=== PATIENT | female | born 1985 | race Caucasian/White ===

== ENCOUNTER 2017-07-14 17:14 | Emergency (ER) | payer OTHER ==
[2017-07-14 17:51] LABS: #Basophils 0.1 thou/uL (0.0-0.2); #Eosinphils 0.1 thou/uL (0.0-0.7); #Lymphocytes 2.6 thou/uL (1.20-3.40); #Monocytes 1.2 thou/uL (0.11-0.59); #Neutrophils 4.9 thou/uL (1.40-6.50); %Eosinophils 1.6 % (0.0-10.0); %Lymphocytes 29.1 % (21.0-51.0); %Monocytes 13.6 % (0.0-10.0); %Neutrophils 54.8 % (42.0-75.0); Hemoglobin 14.1 g/dL (12.0-16.0); Mean Corpuscular HGB CONC 34.2 g/dL (32.0-36.0); Mean Corpuscular Volume 90.6 fl (81.0-99.0); Mean Platelet Volume 8.6 fL (7.4-10.4); Platelet Count 191 thou/uL (130-400); RBC Distribution Width 10.7 % (11.5-14.5); Red Blood Cell (RBC) Count 4.56 mill/uL (4.20-5.40); White Blood Cell (WBC) Count 8.9 thou/uL (4.8-10.8)
[2017-07-14 18:08] LABS: Bilirubin Negative (Negative); Blood, Urine Trace (Negative); Clarity Clear (Clear); Glucose, Urine (Dipstick) Negative (Negative); Leukocyte Negative (Negative); Nitrite Negative (Negative); Protein, Urine (Dipstick) Negative (Neg-Trace); Urobilinogen 0.2 mg/dL (0.2-1.0); pH, Urine 6.5 (5.0-9.0)
[2017-07-14 18:11] LABS: RBC/HPF 0-3 HPF (0-3); Squamous Epithelial 0-3 HPF (0-3); WBC/HPF 0-3 HPF (0-3)
--- NOTE | 2017-07-14 20:31 | ULT ---
PELVIC ULTRASOUND 07/14/17 COMPARISON: None. HISTORY: Vaginal bleeding and pressure, history of prior ectopic and uterine fibroid disease. Quanti tative beta HCG of 1500. TECHNIQUE: Multiplanar qureshi scale sonographic imaging of the pelvis is obtained with endovaginal imaging. The ov dion are assessed with color flow and spectral analysis. FINDINGS: There is no intrauterine gestational sac seen. There is a hypoechoic 1.9 x 20 cm lesion within the mid portion of the uterus which suggests a uterin e fibroid. The patient does report a history of uterine fibroid disease. The left ovary measures 2.5 x 1.3 x 2.9 cm and the right ovary measures 4.6 x 2.5 x 3.6 cm. both ovar ies demonstrate normal blood flow. There is a nonspecific heterogeneous iso to hypoechoic structure/mass in the left adnexal region guerita cent to the left ovary measuring 1.5 x 1.1 cm. this is of uncertain significance. It does not demonst rate an internal pole. This could potentially represent an ectopic in the left adnexa l region. This could also represent an exophytic hypoechoic/isoechoic lesion emanating from the left ovary. There is a mild to moderate degree of free fluid seen in the pelvis. There is a cyst in the right ova ry measuring up to 3.6 cm. IMPRESSION: 1. No intrauterine gestational sac seen. 1.9 x 2.0 cm heterogeneously hypoechoic lesion in the m id portion of the uterus suggests a fibroid. 2. Nonspecific heterogeneous hypo/isoechoic lesion in the left adnexa as detailed above. This co uld represent ectopic or exophytic lesion emanating from left ovary. As ectopic c annot be excluded and no intrauterine gestational sac is seen, a followup pelvic ultrasound and quant itative beta HCG is advised in 48 hours. 3. Nonspecific free fluid in the pelvis. Code T POS: [facility]
[2017-07-14 20:58] LABS: ALT (SGPT) 31 U/L (8-55); AST (SGOT) 29 U/L (5-34); Albumin 4.4 g/dL (3.5-5.0); Alkaline Phosphatase 60 U/L (40-150); Anion Gap 13 mmol/L (10-20); BUN (Urea Nitrogen) 18 mg/dL (7.0-18.7); Bilirubin, Total 0.4 mg/dL (0.2-1.2); Calc. Creatinine Clearance 0 mL/min (70-130); Calcium 9.4 mg/dL (7.8-10.44); Carbon Dioxide 25 mmol/L (22-29); Chloride 105 mmol/L (98-107); Estimated GFR-MDRD Greater than 90; Globulin 2.4 g/dL (2.4-3.5); Glucose 88 mg/dL (70-105); Potassium 3.9 mmol/L (3.5-5.1); Protein, Total 6.8 g/dL (6.0-8.3); Sodium 139 mmol/L (136-145)
[2017-07-16 10:32] LABS: Chlamydia by PCR Not Detected (NotDetected); GC by PCR Not Detected (NotDetected)
== END 2017-07-14 20:49 | disposition home or self-care (01) ==
LOC: SCSER 17:14
DX: O26.851 Spotting complicating pregnancy, first trimester (principal)
CPT/HCPCS: 36415; 76856; 80053; 81003; 81015; 84702; 85025; 86900; 86901; 87480; 87491; 87510; 87591; 87660

== ENCOUNTER 2017-07-17 09:35 | Day surgery (SDC) | payer OTHER ==
[2017-07-17 10:14] LABS: #Eosinphils 0.1 thou/uL (0.0-0.7); #Lymphocytes 1.5 thou/uL (1.20-3.40); #Monocytes 0.9 thou/uL (0.11-0.59); #Neutrophils 4.8 thou/uL (1.40-6.50); %Basophils 0.4 % (0.0-1.0); %Eosinophils 0.9 % (0.0-10.0); %Lymphocytes 20.2 % (21.0-51.0); %Neutrophils 66.5 % (42.0-75.0); Hemoglobin 13.7 g/dL (12.0-16.0); Mean Corpuscular HGB CONC 33.7 g/dL (32.0-36.0); Mean Corpuscular Hemoglobin 32.1 pg (27.0-31.0); Mean Corpuscular Volume 95.3 fl (81.0-99.0); Mean Platelet Volume 7.4 fL (7.4-10.4); Platelet Count 168 thou/uL (130-400); RBC Distribution Width 11.2 % (11.5-14.5); Red Blood Cell (RBC) Count 4.27 mill/uL (4.20-5.40); White Blood Cell (WBC) Count 7.3 thou/uL (4.8-10.8)
[2017-07-17] MEDS ORDERED: Fentanyl 100 MCG/2 ML VIAL ONE ×2 (10:29→12:21)
[2017-07-17 10:33] LABS: ALT (SGPT) 27 U/L (8-55); AST (SGOT) 25 U/L (5-34); Albumin 4.1 g/dL (3.5-5.0); Alkaline Phosphatase 49 U/L (40-150); Anion Gap 10 mmol/L (10-20); BUN (Urea Nitrogen) 14 mg/dL (7.0-18.7); Bilirubin, Total 0.6 mg/dL (0.2-1.2); Calc. Creatinine Clearance 0 mL/min (70-130); Calcium 9.3 mg/dL (7.8-10.44); Carbon Dioxide 25 mmol/L (22-29); Chloride 107 mmol/L (98-107); Estimated GFR-MDRD Greater than 90; Globulin 2.2 g/dL (2.4-3.5); Glucose 87 mg/dL (70-105); Potassium 4.1 mmol/L (3.5-5.1); Protein, Total 6.3 g/dL (6.0-8.3); Sodium 138 mmol/L (136-145)
--- NOTE | 2017-07-17 11:18 | ULT ---
PELVIC ULTRASOUND: Date: 07/17/17 COMPARISON: 07/14/17. HISTORY: Vaginal bleeding, positive test, history of ectopic pregnancies. TECHNIQUE: Multiplanar Diaz scale sonographic imaging of the pelvis obtained with transabdominal and endovaginal imaging. FINDINGS: Uterus measures 8.9 x 4.5 x 4.7 cm. Within the ventral aspect of the myometrium, there is a heterogen eously hypoechoic lesion measuring in the 2.1 x 1.8 cm range, evidence of a uterine fibroid. Endometr ial stripe is 3.0 mm. No intrauterine gestational sac is seen. There is a small to moderate amount of free fluid in the pelvis. Left ovary measures approximately 2.6 x 1.3 x 1.9 cm and demonstrates no mass lesion. Right ovary bennie sures 1.9 x 2.2 cm and contains a 2.2 cm cyst. The area of abnormality seen in the left adnexal region on the prior study is not visualized, but the patient could not tolerate imaging secondary to pain. IMPRESSION: No intrauterine gestational sac. Free fluid in the pelvis. Right ovarian cyst. 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 Findings are mo st consistent with sonographically occult ectopic . Results called to Dr. Concepcion at 1040 hours on 07/17/17. CODE CR. POS: [facility]
--- NOTE | 2017-07-17 13:04 | HP ---
DATE OF SERVICE: 07/17/2017 SURGICAL H AND P CHIEF COMPLAINT: Abdominal pain. HISTORY OF PRESENT ILLNESS: The patient is a 31-year-old G5, P1 female with a 4 -day history of increasing abdominal pain. The patient was diagnosed with a likely ectopic 2 days ago, but was not prepared to make any management decisions at that time and left the emergency room. She returned today with increasing abdominal pain with her . ER consulted [employer] [facility] for evaluation. The patient reports that she has a history of 2 prior ectopic pregnancies. Patient was treated laparoscopically with a tube preserving procedure and the second ectopic was treated with methotrexate. The patient has had increase in quantitative from 4663-1903 in the last 3 days and initially was noted to have a small 1.5 cm mass in the left adnexal region that was unable to be visualized well with this evaluation due to pain. The patient has strongly expressed her desire for another healthy child. She denies any other recent illness, fever, fall, headache, chest pain, shortness of breath. She has had nausea, vomiting. She reports the pain seems to be deep in her pelvis seemed to start at her cervix and has worked its way up and feels like unrelenting contractions. PAST MEDICAL HISTORY: Negative. PAST SURGICAL HISTORY: She has had her tonsils removed and she has had 1 laparoscopic procedure with what sounds like a salpingostomy. SOCIAL HISTORY: Denies drug, alcohol or tobacco use. ALLERGIES: PREDNISONE. MEDICATIONS: She has had 50 mcg of fentanyl during this hospitalization. Ultrasound again confirms no intrauterine . It was unable to evaluate the left with confidence due to the level of pain the patient is feeling. PHYSICAL EXAMINATION: VITAL SIGNS: Blood pressure 129/88, pulse of 62, respiratory rate of 18, temperature 98.2, satting 99% on room air. GENERAL: She appears to be in some distress; however, she is alert and oriented , cooperative and pleasant to interact with. HEAD: Normocephalic, atraumatic. LUNGS: Clear to auscultation bilaterally. HEART: Regular rate and rhythm. ABDOMEN: Soft. She has significant tenderness in the left lower quadrant minimal to no tenderness in her right quadrant and suprapubically. EXTREMITIES: Nontender, nonedematous. LABORATORY DATA: Blood type is O positive. Her hCG quantitative is 3422, creatinine is 0.69, hemoglobin is 13.7, hematocrit 40.7, platelets of 168,000. ASSESSMENT AND PLAN: The patient is a 31-year-old female with a history of 2 prior ectopic pregnancies with a likely third. Pt strongly desires tube preservation. WE have discussed her extremely high risk of future ectopic pregnancies. After discussing her options including medical vs surgical treatment we have opted for diagnostic laparoscopy with possible salpingostomy versus salpingectomy versus salpingo-oophorectomy. I did recommend removal of the tube. The patient has been informed of the risks and benefits of a diagnostic laparoscopy with surgical removal of this ectopic via salpingostomy versus salpingectomy versus salpingo-oophorectomy. The patient has expressed understanding and desires to proceed. AMILCAR
[2017-07-17 14:05] LABS: Bilirubin Negative (Negative); Blood, Urine Moderate (Negative); Glucose, Urine (Dipstick) Negative (Negative); Leukocyte Negative (Negative); Nitrite Negative (Negative); Protein, Urine (Dipstick) Negative (Neg-Trace); Urobilinogen 0.2 mg/dL (0.2-1.0)
[2017-07-17 14:11] LABS: Clarity CLEAR (Clear)
[2017-07-17 14:21] LABS: Bacteria/HPF None Seen HPF (None Seen); Hyaline Casts/LPF NONE SEEN LPF (0-3 Hyaline); RBC/HPF 0-3 HPF (0-3); Squamous Epithelial 0-3 HPF (0-3); WBC/HPF None Seen HPF (0-3)
[2017-07-17] MEDS ORDERED: PROPOFOL 200 MG/20 ML VIAL ONE (14:46)
[2017-07-17] MEDS ORDERED: Lidocaine 1% PF 5 ML VIAL ONE (14:46)
[2017-07-17] MEDS ORDERED: Ondansetron HCl/PF 4 MG/2 ML Vial ONE (14:46)
[2017-07-17] MEDS ORDERED: diphenhydrAMINE 50 MG/ML VIAL ONE (14:46)
[2017-07-17] MEDS ORDERED: Glycopyrrolate 0.2 MG/ML 5 ML SYRINGE ONE (14:46)
[2017-07-17] MEDS ORDERED: Morphine 2 MG/ML SYRINGE ONE ×2 (16:00)
[2017-07-17] MEDS ORDERED: Bupivacaine HCl 0.5%/Epinephrine 1:200,000/PF 30 ml Vial ONE (16:23)
[2017-07-17] MEDS ORDERED: Morphine 4 MG/ML VIAL ONE ×2 (18:01→21:20)
[2017-07-17] MEDS ORDERED: Midazolam HCl 2 mg/2 ml Vial ONE (18:07)
[2017-07-17] MEDS ORDERED: Fentanyl 250 MCG/5 ML VIAL ONE (18:07)
[2017-07-17] MEDS ORDERED: Meperidine HCl/PF 25 MG/ML VIAL ONE (20:35)
[2017-07-17] MEDS ORDERED: Promethazine HCl 25 MG/ML VIAL ONE (21:15)
[2017-07-17] MEDS ORDERED: Ketorolac Tromethamine 30 MG/ML VIAL ONE (22:28)
--- NOTE | 2017-07-18 01:24 | OP ---
PREOPERATIVE DIAGNOSIS: Left ectopic . POSTOPERATIVE DIAGNOSIS: Left ectopic . PROCEDURES PERFORMED: Diagnostic laparoscopy with left salpingectomy. ANESTHESIA: General. SURGEON: Jg Mackey M.D. COUNTS: Correct. COMPLICATIONS: None. CONDITION: Stable to recovery room. ESTIMATED BLOOD LOSS: 50 mL to 100 mL total. FINDINGS: The patient has a right ovarian cyst with a right paratubal cyst at the fimbrial end of th e tube. The patient has a left tube ectopic. She has approximately 50 mL of blood in the vault. Th e patient's right tube appears to be fairly normal, soft with a flowery fimbrial end. SPECIMENS: Left tube and products of conception. PROCEDURE IN DETAIL: Ms. Sepideh Mix was taken to the operating room after extensive counseling to h er options for a suspected left ectopic . After counseling for risks, benefits, and alterna tives, the patient provided informed consent to proceed with a diagnostic laparoscopy with possible s alpingostomy versus salpingectomy versus salpingo-oophorectomy. The patient was placed under general anesthesia and placed in dorsal lithotomy position in [facility]. She was prepared and draped i n the normal sterile fashion. Attention was placed vaginally with an open-sided speculum. A single- tooth tenaculum was applied to the anterior lip of the cervix followed by a Pocits uterine manipulator . Attention was then placed abdominally where a Veress needle was introduced at the base of the umbi licus into the peritoneal cavity with entry pressure of 3 mmHg. Abdomen was insufflated with CO2 gas until about 15 mmHg. A 5 mm skin incision was placed in the base of the umbilicus. A 10-11 mm skin incision was made suprapubically about two fingerbreadths above the pubic ramus and a left lateral i ncision of about 5 mm was also made. A 5 mm port was then placed through the umbilical incision into the peritoneal cavity with proper placement confirmed by laparoscope. Upon inspection of the pelvis , it was immediately noted there was a small amount of blood in the anterior, posterior cul-de-sac wi th an estimated about 50 mL and also clearly noted was a left tubal ectopic that does not appear to b e ruptured. Two more ports were then introduced suprapubically 11 mm port and laterally another 5 mm port. The blood was then irrigated out and a salpingostomy with monopolar hook was then made at the outer side of the tube. The clot and products of conception were then removed from the contents of the tube and hemostasis was attempted with monopolar energy with a monopolar hook and a monopolar pad dle. After about 20-30 minutes of attempting resolution of the bleeding with those 2 energies and wi th pressure. This was unable to be achieved and decision at that time was made to remove the tube wi th the LigaSure bipolar device, a salpingectomy was then performed beginning at the fimbrial region o f the tube and dissecting or exercising through the mesosalpinx, the tube was then removed at the ist hmic portion. The cul-de-sac was then irrigated and drained from the bloody fluid present and hemost asis was noted. The patient's left ovarian simple cyst was then drained as well as a right ovarian c yst as well as a right paratubal cyst. The right tube appeared otherwise fairly normal with no obvio us deformities, clubbing or scarring at this time with good hemostasis confirmed. The abdomen was th en deflated and the ports were removed. A 5 mm skin incision was closed with 4-0 Monocryl. The supr apubic incision was closed with 0 Vicryl single stitch of 0 Vicryl in the underlying fascia followed by 4-0 Monocryl in the skin. The patient tolerated the procedure well and was taken to recovery room in stable condition. Prior to this, the single tooth tenaculum and uterine manipulator were then re moved and the cervix was noted to be hemostatic.
== END 2017-07-17 23:11 | disposition home or self-care (01) ==
LOC: ERS 09:35 → SDC 15:57
PROVIDERS: ATTEND Obstetrics & Gynecology
PROC: 10T24ZZ Resection of Products of Conception, Ectopic, Percutaneous Endoscopic Approach (ICD-10-PCS; principal; 2017-07-17)
PROC: 0UT64ZZ Resection of Left Fallopian Tube, Percutaneous Endoscopic Approach (ICD-10-PCS; principal; 2017-07-17)
DX: O00.102 Left tubal pregnancy without intrauterine pregnancy (principal)
CPT/HCPCS: 36415; 76856; 80053; 81003; 81015; 84702; 85025; 86850; 86900; 86901; 88305; 96374; 96376; J0670; J1200; J1885; J2001; J2175; J2250; J2270; J2405; J2550; J2704; J3010

== ENCOUNTER 2017-08-30 13:35 | Outpatient (CLI) | payer OTHER ==
[~2017-08-30 13:35] MED LIST: Iopamidol 300 61% 50 ML VIAL FS ONE
--- NOTE | 2017-08-30 17:30 | RAD ---
HYSTEROSALPINGOGRAM: 08/30/17 HISTORY: Previous left fallopian tube ectopic . Evaluate patency of the right fallopian tube. EXPOSURE: 1 minute. DOSE: 371.3 uGy*m2. FINDINGS: In a retrograde fashion, the patient administered Isovue 300m contrast. Truncation of the left fallop zafar tube, compatible with the patient's history. The right fallopian tube is patent. There is dilatat ion of the ampulla and infundibulum of the right fallopian tube suggesting hydrosalpinx. There is sti ll free spillage suggesting patency. IMPRESSION: Free spillage suggesting right fallopian tube patency. There is dilatation of the mid to distal aspec t of the right fallopian tube suggesting hydrosalpinx. POS: [facility]
== END 2017-08-30 13:36 | disposition home or self-care (01) ==
LOC: RAD 13:35
PROVIDERS: ATTEND Obstetrics & Gynecology
DX: Z31.41 Encounter for fertility testing (principal); N83.8 Other noninflammatory disorders of ovary, fallopian tube and broad ligament; Z87.59 Personal history of other complications of pregnancy, childbirth and the puerperium
CPT/HCPCS: 58340; 74740